=== PATIENT | female | born 1950 ===

== ENCOUNTER 2021-05-05 05:46 | Day surgery (SDC) | payer OTHER ==
[~2021-05-05 05:46] MED LIST: ATACAND32 MG PO; LEVOTHYROXINE25 MCG PO
[2021-05-05] MEDS ORDERED: ULTRACET PO (10:48)
[2021-05-05] MEDS ORDERED: KEFLEX750 MG PO (10:48)
== END 2021-05-05 12:00 | disposition home or self-care (01) ==
LOC: CIR.AMB 05:46
PROVIDERS: ATTEND Obstetrics & Gynecology Gynecology
DX: N32.81 Overactive bladder (principal)
CPT/HCPCS: 64590; 64581; 95972; C1778; L8679